=== PATIENT | female | born 1985 | race Caucasian/White ===

== ENCOUNTER 2017-05-24 08:54 | Emergency (ER) | payer OTHER ==
[~2017-05-24] VITALS: Ht 162.6 cm; Wt 49.0 kg
[~2017-05-24 08:54] MED LIST: BIRTH CONTROL; PROZAC40 MG PO
[2017-05-24] MEDS ORDERED: ADDERALL 20 MG20 M1 PO (09:18)
[2017-05-24] MEDS ORDERED: HYDROCODONE-AP1 EAC6 PO (09:53)
== END 2017-05-24 10:47 | disposition home or self-care (01) ==
LOC: ER 08:54
DX: M62.830 Muscle spasm of back (principal); G43.909 Migraine, unspecified, not intractable, without status migrainosus; F32.9 Major depressive disorder, single episode, unspecified; F17.210 Nicotine dependence, cigarettes, uncomplicated; F10.99 Alcohol use, unspecified with unspecified alcohol-induced disorder